=== PATIENT | female | born 1995 | race Caucasian/White ===

== ENCOUNTER 2020-12-11 16:39 | Outpatient (CLI) | payer OTHER ==
[~2020-12-11] VITALS: Ht 162.6 cm; Wt 123.0 kg
[2020-12-11] MEDS ORDERED: WELLTAB38 PO (16:59)
[2020-12-11] MEDS ORDERED: ASPI81CH33 PO (16:59)
[2020-12-11] MEDS ORDERED: PRENTAB9 PO (16:59)
[2020-12-11] MEDS ORDERED: LAMI5CHW PO (16:59)
[2020-12-11] MEDS ORDERED: HYDR-3363 PO (17:01)
[2020-12-11] MEDS ORDERED: RENATAB6 PO (17:01)
[2020-12-11 17:06] VITALS: BP 141/84
--- NOTE | 2020-12-12 03:08 | IPNPDOC ---
Text Note Date of Service The patient was seen on 12/11. seen as triage patient ?srom and decreased movement x 24 hours NOTE 25 yo LMP 02/26/20 EDC 12/30/20 AT 38.4 WEEKS COMPLAINTS OF DECREASED MOVEMENT X 24 HOURS AND POSSIBLE SROM . 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 NO ACUTE DISTRESS CATEGORY 1 STRIP. ACCELERATIONS NOTED NO DECELERATIONS OCCASIONAL CONTRACTIONS PATIENT NOT FEELING THEM. SF HEIGHT 40 CM VERTEX BOWEL SOUNDS ACTIVE. STERILE SPECULUM EXAMINATION AFTER CONSENTED LATERAL AVERY BULGING IN VAGINA MODERATE MUCUS NOTED NITRAZINE POSITIVE BUT HAD INTERCOURSE PRIOR . SLIDE NO BV NAOMIE YEAST NO FERNING MANY SPERM. DIGITAL EXAMINATION CERVIX POSTERIOR -3 CLOSED BALLOTABLE . US AFTER CONSENTED VERTEX FHR 144 BPM ANABELL 3 QUADRANTS 12,78 CM SMALLEST POCKET VERTICAL 2.89 CM PLAN DISCHARGE UNDELIVERED PRECAUTIONS GIVEN MAINTAIN APPOINTMENT FT DRUM OB VS,Fishbone, I+O VS, Fishbone, I+O Vital Signs Date Time Temp Pulse Resp B/P (MAP) Pulse Ox O2 Delivery O2 Flow Rate FiO2 12/11/20 17:06 97.5 106 18 141/84 (103) Cameron Fields MD Dec 12, 2020 03:08
== END 2020-12-11 18:06 | disposition home or self-care (01) ==
LOC: M LDO 16:39
PROVIDERS: ATTEND Obstetrics & Gynecology
DX: O36.8130 Decreased fetal movements, third trimester, not applicable or unspecified (principal); Z3A.38 38 weeks gestation of pregnancy
CPT/HCPCS: 59025; 76815; G0378; G0463

== ENCOUNTER 2020-12-13 06:18 | Inpatient (IN) | payer OTHER ==
[~2020-12-13] VITALS: Ht 162.6 cm; Wt 123.0 kg
[2020-12-13] VITALS (32 sets, daily range): BP systolic 114–206; BP diastolic 57–105
[~2020-12-13 06:18] MED LIST: ASPI81CH33 PO; HYDR-3363 PO; LAMI5CHW PO; PRENTAB9 PO; RENATAB6 PO; WELLTAB38 PO
[2020-12-13] MEDS ORDERED: LACTATED RINGER'S 1000 ML IV STA (07:02)
[2020-12-13] MEDS ORDERED: OXYTOCIN DRIP 30 UNITS in IV 1 EA IV SCH ×2 (07:15→13:18)
--- NOTE | 2020-12-13 07:35 | HPEPDOC ---
Obstetrical History & Physical General Date of Admission Dec 13, 2020 at 07:03 History of Present Illness 25 yo @ 38+2 by 1st US who is admitted in labor. reports painful contrac tions all night. she denies any vb, LOF,or decreased movement. PP 8#11, she feels this baby is smaller. Information Provided By: Patient Care Care: None Dating Final EDC: Dec 25, 2020 Final EDC by: 1st trimester (US) LMP: Feb 26, 2020 1st Trimester Date: May 16, 2020 EGA at Admission: 3 (38+2) Antepartum Course Diagnos(e)s 1. Rh negative- Received Rhogam at 28 weeks 2. Obesity prepregnancy BMI 42, with excessive weight gain #54lb 3. CF carrier- fob neg 4. Abnormal 1 hrs, normal 3 hrs 5. HX of shoulder dystocia with G2. 6. HX oF PPROM at 34 weeks with G1, was on kelsi 7. 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 History: No pertinent history Past Medical History Surgical History: Denies/None Family History Significant Family History: No pertinent family hx Social History Marital Status: Family situation: Spouse/partner home Psychosocial History: No pertinent psych hx * Smoker: non-smoker Alcohol: Denies Abuse Violence Screening Have you been hit/kicked/slapp: No Have you been sexually assault: No Imunizations Tdap status: current Influenza Status: current Allergies Coded Allergies: No Known Allergies (Verified Allergy, Unknown, 12/11/20) Medications Scheduled Aspirin (Aspirin) 81 Mg Tab.chew, 1 TAB PO DAILY for pain Bupropion HCl (Wellbutrin Xl) 150 Mg Tab.er.24h, 150 MG PO DAILY Hydroxyzine HCl (Hydroxyzine HCl) 25 Mg Tablet, 1 TAB PO BID for anxiety Lamotrigine (Lamictal) 5 Mg Tb.chw.dsp, 75 MG PO DAILY No.137/Iron/Folic Acd ( Vitamin Tablet) 1 Each Tablet, 1 TAB PO DAILY Vit B Comp No.3/Folic/C/Biotin (Ca-Jonathon Rx Tablet) 1 Each Tablet, 1 TAB PO DAILY Physical Examination Physical Examination GENERAL: Alert and oriented times three. BREAST: . ABDOMEN: Gravid and non-tender to touch. FETUS: Is vertex (VTX) by sterile vaginal examination (SVE) HEART RATE: Regular rate and rhythm. LUNGS: REGULAR RATE EXTREMITIES: No edema. SVE: 4/75/-2 Vital Signs/I&O Vital Signs Date Time Temp Pulse Resp B/P (MAP) Pulse Ox O2 Delivery O2 Flow Rate FiO2 12/13/20 06:46 98.5 121 129/80 (96) Laboratory Data Urine Culture: No Growth, Urinary Tract Infection Pertinent Laboratoy Data Blood Type: O- RBC Antibody Screen: Negative HIV: Negative Hepatitis B: Negative Hepatitis C: Unknown Rapid Plasma Reagin: Nonreactive Rubella: Immune Varicella: Immune Chlamydia/Gonorrhea: Negative Quad Screen Test: Unknown Cystic Fibrosis: Positive Anatomy Ultrasound Placenta Location: Anterior Normal Anatomy: Yes Placenta Previa: No Steroid Therapy Steroid Therapy: No Vaginal Examination Dilation: 4 cm Effacement: 70% Station: -2 Cervical Consistency: Soft Cervical Position: Anterior Presentation: Cephalic presentation Assessment Heart Rate (FHR): 140 Variability: Moderate Accelerations: Positive Decelerations: None Tocometer Contractions: Yes Duration: greater than 60 seconds Multi-drug resistant Organism: No history of MDRO Assessment/Plan Assessment 25 yo @ 38+2 by 1st US who is admitted in labor. reports painful contractions all night. she denies any vb, LOF,or decreased movement. PP 8#11, she feels this baby is smaller. 1. Rh negative- Received Rhogam at 28 weeks 2. Obesity prepregnancy BMI 42, with excessive weight gain #54lb 3. CF carrier- fob neg 4. Abnormal 1 hrs, normal 3 hrs 5. HX of shoulder dystocia with G2. 6. HX oF PPROM at 34 weeks with G1, was on kelsi 7. Bipolar Disorder on Lamictal Plan Admit and orient. 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 Diet: clear Group B Streptococcus (GBS) negative Labs and intravenous (IV) per unit protocol. Counseled on Pitocin and induction of labor (IOL). Lactated Ringers (LR): Bolus 1000 mL, then at 125 mL/hr. Anticipate [normal spontaneous delivery ()]. C-S as appropriate. STACEY HERNANDEZ MD Dec 13, 2020 07:35
[2020-12-13 08:06] LABS: HEMATOCRIT 41.1 % (36.0-47.0); HEMOGLOBIN 13.3 g/dl (12.0-15.5); MEAN CORPUSCULAR HGB CONC 32.4 g/dl (32.0-36.5); MEAN CORPUSCULAR VOLUME 86.5 fl (80.0-96.0); PLATELET COUNT, AUTOMATED 302 10^3/uL (150-450); RED BLOOD COUNT 4.75 10^6/uL (4.00-5.40); WHITE BLOOD COUNT 18.7 10^3/uL (4.0-10.0)
[2020-12-13] MEDS: LR 1,000 ML IV SCH ×3 (08:06→23:02)
[2020-12-13] MEDS ORDERED: EPIDURAL/PCA KEYS XX PRN (08:17)
[2020-12-13] MEDS ORDERED: EPIDURAL COMMENT XX SCH (08:17)
[2020-12-13] MEDS ORDERED: LACTATED RINGER'S 1000 ML IV PRN (08:17)
[2020-12-13] MEDS ORDERED: diphenhydrAMINE 50MG/ML VIAL (J1200) IV PRN (08:17)
[2020-12-13] MEDS ORDERED: ePHEDrine SULFATE 25 MG/5 ML(5MG/ML) SYRINGE IV PRN (08:17)
[2020-12-13] MEDS ORDERED: NALOXONE INJ 0.4MG/1ML VIAL (J2310 PER 1MG) IV PRN (08:17)
[2020-12-13] MEDS ORDERED: FENTANYL/ROPIVACAINE/NACL BAG 100 ML EPIDURAL SCH (08:17)
[2020-12-13] MEDS ORDERED: REFRIGERATOR IV KEYS XX PRN (08:17)
[2020-12-13] MEDS ORDERED: ONDANSETRON 4MG/2ML VIAL IV PRN (08:17)
[2020-12-13] MEDS ORDERED: FENTANYL 2MCG/ML ROPIVACAINE 0.2% IN 0.9% NACL 100ML IVBAG As Ordered ONE (08:18)
--- NOTE | 2020-12-13 09:36 | IPNPDOC ---
Obstetrical Progress Note Date of Service Dec 13, 2020 Subjective 25 yo at 38w2d with ROSA M of 25 DEC 2020 admitted for labor. She is now comfortable with her epidural. She has no further complaints at this time. She has supportive family at the bedside. Objective Vital Signs Date Time Temp Pulse Resp B/P (MAP) Pulse Ox O2 Delivery O2 Flow Rate FiO2 12/13/20 08:58 97.9 98 18 117/73 (88) SROM for clear fluid after cervical exam Was asked by RN to place FSE due to maternal obesity and difficulty to monitor baby externally. FSE was placed without difficulty. Assessment Heart Rate (FHR): 135 Variability: Moderate Accelerations: Present Decelerations: None Tocometer Contractions: Yes Frequency: irregular, other (every 4-6 minutes) Sterile Vaginal Examination Dilation: 6 cm Effacement (%): 80% Station: -2 Cervical Position: Middle Postion/Presentation: Cephalic presentation Assessment and Plan Age: 25 : 3 Term: 1 Pre-term: 1 Abortions: 0 Livin EGA at Admission: 38 (+2) Weeks & Days 38w2d Status: Reassuring Group B Streptococcus: Negative Anticipate: Vaginal Delivery BJ ANGUIANO CNM Dec 13, 2020 09:29
[2020-12-13] MEDS ORDERED: FAMOTIDINE INJ 20MG/2ML VIAL (S0028 PER 1) IVP ONE (12:00)
[2020-12-13] MEDS ORDERED: HEPATITIS B VAC *BIRTH DOSE ONLY*(ENGERIX) 10 MCG/0.5 ML SYRINGE IM ONE (13:15)
[2020-12-13] MEDS ORDERED: PHYTONADIONE 1 MG/0.5 ML SYRINGE (J3430) IM ONE (13:15)
[2020-12-13] MEDS ORDERED: ERYTHROMYCIN OPHTH OINT OU ONE (13:15)
[2020-12-13] MEDS ORDERED: BREAST MILK 1 BOTTLE PO PRN (13:15)
[2020-12-13] MEDS ORDERED: RHOGAM 300 MCG (1500 IU) INJ (J2790) IM SCH (13:30)
[2020-12-13] MEDS ORDERED: PROMETHAZINE 25 MG TAB PO PRN (13:30)
[2020-12-13] MEDS ORDERED: BENZOCAINE 20% HEMORRHOIDAL OINTMENT 28GM TUBE TOP PRN (13:30)
[2020-12-13] MEDS ORDERED: ACETAMINOPHEN TAB 650MG DOSE (2X325MG) PO PRN (13:30)
[2020-12-13] MEDS ORDERED: MOM 30ML SUSPENSION UDC PO PRN (13:30)
[2020-12-13] MEDS ORDERED: IBUPROFEN 600MG TAB PO PRN (13:30)
[2020-12-13] MEDS ORDERED: METHYLERGONOVINE MALEATE 0.2 MG TAB PO PRN (13:30)
--- NOTE | 2020-12-13 13:39 | DNPDOC ---
[facility] Delivery Note Delivery Note Date of the procedure: 12/13/2020 Preoperative diagnosis: 1. 25 y/o at 38w2d 2. Active labor 3. GBS negative 4. O Negative 5. Bipolar on lamictal 6. Morbid Obesity 7. Hx of shoulder dystocia with G2 8. Hx of PPROM at 34 weeks with G1 9. Hx of Pre-eclampsia with G1 Postoperative diagnosis: 1. 25 y/o now at 38w2d 2. Active labor 3. GBS negative 4. O Negative 5. Bipolar on lamictal 6. Morbid Obesity 7. Hx of shoulder dystocia with G2 8. Hx of PPROM at 34 weeks with G1 9. Hx of Pre-eclampsia with G1 10. Second degree perineal laceration Procedure: Delivering Provider: RAPHAEL Vu CNM, ODILON Doctor Of Podiatry Back-up: Dr. Jesus Alberto Clifford Anesthesia: Epidural EBL: 300 ml Specimens: Cord blood collected. Findings: Live female weighing 9 lb 2 oz, 4130 grams with Apgars of 9 and 9 at 1 and 5 minutes respectively. Complications: None Details of the procedure: The patient presented complaining of contractions and was found to be in active labor. Patient was 4 cm dilated and was then admitted to L&D. Labor progressed without Pitocin and membranes were ruptured artificially for clear fluid.. The patient progressed to fully dilated and entered the second stage of labor, at which point she began to push over an intact perineum. The head was then delivered. The nuchal cord was not noted. The rest of the was delivered. The infant was placed on maternal abdomen and the cord was doubly clamped and cut. Cord blood was collected and a 3 vessel cord was noted. Manual exploration of the uterus was not performed. Uterine tone was firm. Perineum was inspected and a second degree perinal laceration was found. This was repaired with 2-0 chromic. Cervical exam was normal. Rectal exam was not noted. Sponge, instrument, and needle counts were correct. The patient tolerated the procedure well and is stable in recovery. Note was written and electronically signed by: RAPHAEL Vu CNM, BJ TRUJILLO CNM Dec 13, 2020 13:28
[2020-12-13] MEDS: lamoTRIgine 100MG TAB PO SCH (14:59)
[2020-12-13] MEDS: ACETAMINOPHEN 500 MG TAB PO PRN ×2 (15:00→23:05)
[2020-12-13] MEDS: buPROPion **XL** TABLET 150MG (WELLBUTRIN XL) PO SCH (15:00)
[2020-12-13] MEDS: IBUPROFEN 800 MG TAB PO PRN (18:25)
[2020-12-13] MEDS: DOCUSATE SODIUM 100MG CAPSULE PO SCH (20:05)
[2020-12-14 05:41] VITALS: BP 121/73
--- NOTE | 2020-12-14 06:00 | IPNPDOC ---
Progress Note Date of Service: Dec 14, 2020 Progress Note Kylah is a 25 yo G3 now P3 who is PPD#1 s/p uncomplicated yesterday afternoon after being admitted for active labor. No acute events overnight. Kylah reports feeling well this morning. She is ambulating, voiding, tolerating a regular diet. Her lochia is minimal. Vitals - VSS, afebrile, normotensive, non tachycardic General - AAOX3, sitting up in bed, NAD Abdomen - Fundus firm at U-2. No fundal tenderness Extremities - No edema Kylah is doing well and is making an appropriate recovery. Continue to encourage ambulation and . Likely discharge home tomorrow if meeting all criteria. Leigh Clifford DO VS, I&O, 24H, [place] Vital Signs/I&O Vital Signs Date Time Temp Pulse Resp B/P (MAP) Pulse Ox O2 Delivery O2 Flow Rate FiO2 12/14/20 05:41 97.8 102 20 121/73 (89) 12/13/20 15:26 98 Room Air I&O- Last 24 Hours up to 6 AM 12/14/20 06:00 Intake Total 2331.0 ml Output Total 1420 ml Balance 911.0 ml Laboratory Data 24H LABS Laboratory Tests 2 12/13/20 07:43: Coronavirus (COVID-19)(PCR) NEGATIVE 12/13/20 07:49: Nucleated Red Blood Cells % (auto) 0.0, Syphilis Serology NONREACTIVE 12/13/20 08:22: Serology Scanned Report Hepatitis B Testing CBC/BMP Laboratory Tests 12/13/20 07:49 LEIGH CLIFFORD DO Dec 14, 2020 06:00
[2020-12-14] MEDS: IBUPROFEN 800 MG TAB PO PRN (06:47)
[2020-12-14 07:03] LABS: HEMATOCRIT 33.6 % (36.0-47.0); HEMOGLOBIN 10.7 g/dl (12.0-15.5); MEAN CORPUSCULAR HEMOGLOBIN 28.4 pg (27.0-33.0); MEAN CORPUSCULAR HGB CONC 31.8 g/dl (32.0-36.5); MEAN CORPUSCULAR VOLUME 89.1 fl (80.0-96.0); PLATELET COUNT, AUTOMATED 228 10^3/uL (150-450); RED BLOOD COUNT 3.77 10^6/uL (4.00-5.40); WHITE BLOOD COUNT 12.4 10^3/uL (4.0-10.0)
[2020-12-14] MEDS: lamoTRIgine 100MG TAB PO SCH (08:07)
[2020-12-14] MEDS: buPROPion **XL** TABLET 150MG (WELLBUTRIN XL) PO SCH (08:07)
[2020-12-14] MEDS: DOCUSATE SODIUM 100MG CAPSULE PO SCH (08:07)
[2020-12-14] MEDS ORDERED: PRENATAL VITAMINS CHEWABLE TABLET PO SCH (09:00)
[2020-12-14] MEDS: ACETAMINOPHEN 500 MG TAB PO PRN (09:50)
[2020-12-14] MEDS ORDERED: hydrOXYzine 10 MG TAB PO SCH (10:00)
[2020-12-14] MEDS ORDERED: IBUP-1022 PO (13:36)
[2020-12-14] MEDS ORDERED: DOK1CAP7 PO (13:36)
[2020-12-14] MEDS ORDERED: HYDR-643 PO (13:36)
[2020-12-14] MEDS ORDERED: BUPR150T4 PO (13:36)
[2020-12-14] MEDS ORDERED: LAMO100T80 PO (13:36)
--- NOTE | 2020-12-14 18:40 | DSES ---
DISCHARGE SUMMARY DATE OF ADMISSION: 12/13/2020 DATE OF DISCHARGE: 12/14/2020 BRIEF HISTORY: A 25-year-old 3, now para 3, was admitted with contractions at 38 weeks, 2 days. She had a spontaneous vaginal delivery with epidural in place, a female, 9 pounds 2 ounces, 4130 grams, scores of 9 and 9 at one and five minutes respectively. RISK FACTORS: She is bipolar, has morbid obesity and had a second degree perineal repair. On her second day, we discussed phlebitis, cystitis, mastitis, endometritis, cellulitis, diet, exercise, pain management, perineal care. Medications were dispensed at [place]. She has a six week checkup at [facility] and she will have a planned visit with surveillance observer at [facility]. The rest of the examination unremarkable. Normocephalic, atraumatic. Neck full range of motion. Pupils equal and reactive to light. Distal pulses symmetric. No evidence of deep venous thrombosis (DVT), pulmonary embolism (PE) or superficial phlebitis. CHEST: Clear bilaterally to bases. No wheezes or rhonchi. No costovertebral angle (CVA) tenderness. ABDOMEN: Soft. Uterus is 2 below. Lochia is moderate. Four quadrant bowel sounds are noted. No urgency or frequency. No nausea, vomiting, diarrhea or constipation. Admitting hemoglobin was 13.3, hematocrit 41.1 and platelets were 302. Discharge hemoglobin 10.7, hematocrit 33.6 and platelets were 228. Her discharge vital signs: Blood pressure 121/73, respirations 20, pulse was 102 and temperature 97.8. SUMMARY: Term gestation, delivered a microsomal-looking infant female, discharged improved, to follow up six weeks at [facility]. All questions were answered.
== END 2020-12-14 14:20 | disposition home or self-care (01) | DRG 807 ==
LOC: M LDO 06:18 → M LDI 07:03 → M OBS 15:25
PROVIDERS: ADMIT Registered Nurse Maternal Newborn; ATTEND Obstetrics & Gynecology
PROC: 10E0XZZ Delivery of Products of Conception, External Approach (ICD-10-PCS; principal; 2020-12-13)
PROC: 0KQM0ZZ Repair Perineum Muscle, Open Approach (ICD-10-PCS; 2020-12-14)
PROC: 10907ZC Drainage of Amniotic Fluid, Therapeutic from Products of Conception, Via Natural or Artificial Opening (ICD-10-PCS; 2020-12-14)
DX: O99.214 Obesity complicating childbirth (principal); Z37.0 Single live birth; Z3A.38 38 weeks gestation of pregnancy; E66.9 Obesity, unspecified; O69.81X0 Labor and delivery complicated by cord around neck, without compression, not applicable or unspecified; O70.1 Second degree perineal laceration during delivery